=== PATIENT | male | born 1960 | race Caucasian/White ===

== ENCOUNTER 2017-09-04 11:41 | Emergency (ER) | payer BC, OTHER ==
[~2017-09-04] VITALS: Ht 190.5 cm; Wt 76.5 kg
[~2017-09-04 11:41] MED LIST: METH40TA9 PO; METH750T2 PO
[2017-09-04 12:13] VITALS: BP 141/73; PULSE 100; RESP 20; TEMP 97.9
--- NOTE | 2017-09-04 13:50 | PD ---
HPI Chief Complaint: Injury Time Seen by Provider: 12:57 Travel History International Travel<30 days: No Contact w/Intl Traveler<30days: No Traveled to known affect area: No History of Present Illness HPI 57-year-old male here with left third pain increasing in severity over the last several days. He originally injured the finger when he accidentally hit the hand with a hammer. The area has been painful and swollen since. Small scab to the distal aspect of the finger which has been present since the injury and nonhealing. He denies fever chills. No altered sensation in the finger. No weakness of the extremity. Symptom severity is moderate. Aggravated by palpation of the area and slightly relieved with rest. PFSH Past Medical History Medical History: Denies Significant Hx Diminished Hearing: No Tetanus Vaccination: < 5 Years Influenza Vaccination: Yes Past Surgical History Surgical History: No Previous Surgery Other Surgery: Yes (rt lower lobe thorocotomy) Social History Alcohol Use: No Tobacco Use: Yes Substance Use: No Allergies-Medications (Allergen,Severity, Reaction): Coded Allergies: No Known Allergies (Verified Adverse Reaction, Unknown, 09/04/17) Reported Meds & Prescriptions Reported Meds & Active Scripts Active Review of Systems Except as stated in HPI: all other systems reviewed are Neg General / Constitutional: No: Fever Eyes: No: Visual changes HENT: No: Headaches Cardiovascular: No: Chest Pain or Discomfort Respiratory: No: Shortness of Breath Physical Exam Narrative GENERAL: Alert and well-appearing 57-year-old male SKIN: Warm and dry. HEAD: Normocephalic. EYES: No injection or drainage. NECK: Supple CARDIOVASCULAR: Regular rate and rhythm RESPIRATORY: Breath sounds equal bilaterally. No accessory muscle use. GASTROINTESTINAL: Abdomen soft, non-tender, nondistended. MUSCULOSKELETAL: No cyanosis. Left hand: +TTP distal phalanx of the third digit with mild swelling. There is a small scab to the distal finger pad with notable erythema surrounding it. No drainage. Full flexion and extension of all joints in the finger. Normal sensation. Brisk cap refill. BACK: without obvious deformity. Data Data Last Documented VS Vital Signs Date Time Temp Pulse Resp B/P (MAP) Pulse Ox O2 Delivery O2 Flow Rate FiO2 09/04/17 12:13 97.9 100 20 141/73 (95) Orders Orders Finger ([id number]) (09/04/17 ) MDM Medical Decision Making Medical Screen Exam Complete: Yes Emergency Medical Condition: Yes Differential Diagnosis Tuft fracture, cellulitis/wound infection, contusion, retained foreign body Narrative Course 57-year-old ago with the third digit pain for several weeks. The digit is neurovascularly intact. X-rays negative for fracture. Does reveal radiopaque foreign body in the proximal finger, patient has no pain at the site, and this appears to be unrelated to his symptoms today. He does however have a small scab with surrounding erythema to the distal aspect of the finger that she reports is nonhealing. He will be put on antibiotics for wound infection. Diagnosis Primary Impression: Cellulitis Qualified Codes: L03.90 - Cellulitis, unspecified Referrals: Primary Care Physician Additional Instructions: Medication as directed. Follow-up the primary doctor. Return to emergency department if he develop new or worsening symptoms. Scripts Cephalexin (Keflex) 500 Mg Cap 500 MG PO Q6H for Infection for 10 Days, #40 CAP 0 Refills Prov: Diamante Rendon 09/04/17 Sulfamethoxazole-Trimethoprim (Bactrim DS) 800-160 Mg Tab 1 TAB PO BID for Infection, #20 TAB 0 Refills Prov: Diamante Rendon 09/04/17 Disposition: 01 DISCHARGE HOME Condition: Stable Diamante Rendon Sep 04, 2017 13:50
--- NOTE | 2017-09-04 13:52 | RADRPT ---
EXAM DATE/TIME: 09/04/2017 13:27 [facility] COMPARISON: No previous studies available for comparison. INDICATIONS : Pain, swelling , left 3rd finger tip. states hit finger with a hammer 2 months ago MEDICAL HISTORY : None. SURGICAL HISTORY : None. ENCOUNTER: Initial ACUITY: 3 weeks PAIN SCORE: 4/10 LOCATION: Left 3rd finger tip FINDINGS: There are couple tiny wire-like foreign objects projecting in the palmar soft tissues of the third fi nger, one along the proximal to mid diaphyseal aspect of the proximal phalanx and a second along the proximal metadiaphyseal level of the middle phalanx. There is mild soft tissue swelling. The distal p halanx is intact and unremarkable with mild overlying soft tissue swelling. CONCLUSION: Soft tissue swelling mainly at the tip of the third finger. Tiny wire-like foreign objects in the more proximal finger Ren Powers MD on September 04, 2017 at 13:47 Board Certified Radiologist. This report was verified electronically.
[2017-09-04] MEDS ORDERED: CEPH-460 PO (14:02)
[2017-09-04] MEDS ORDERED: BACT800T5 PO (14:02)
== END 2017-09-04 14:22 | disposition home or self-care (01) ==
LOC: PHED 11:41 → PHEFT 14:22
DX: L03.90 Cellulitis, unspecified (principal); W22.8XXA Striking against or struck by other objects, initial encounter; Z72.0 Tobacco use
CPT/HCPCS: 73140; 99283